=== PATIENT | female | born 1960 | race Caucasian/White ===

== ENCOUNTER → 2019-09-13 | Outpatient (CLI) | payer SELFPAY | PROVIDERS: Family Provider Family Medicine; Visit Provider Family Medicine | DX: R91.8 Other nonspecific abnormal finding of lung field (principal); Z90.49 Acquired absence of other specified parts of digestive tract | CPT/HCPCS: 71250 ==

== ENCOUNTER 2020-02-20 14:01 | Outpatient (CLI) | payer MEDICAID, SELFPAY ==
--- NOTE | 2020-02-20 14:14 | MM_ITS ---
WS: [id number] DIAGNOSTIC BILATERAL DIGITAL MAMMOGRAM WITH CAD HISTORY: HX OF BREAST CA COMPARISON: 06/27/2019 and 12/17/2018 TECHNIQUE: Bilateral craniocaudad, mediolateral oblique, and mediolateral views are submitted. Comput er aided detection utilized. Breast composition: The breasts are heterogeneously dense, which may obscure small masses. Postsurgic al changes and volume loss in the LEFT breast. Large dystrophic calcifications have developed at the surgical site in the upper outer quadrant. There is mild skin thickening and increase in the trabecul ar pattern from radiation treatment. Negative RIGHT breast. MM/[id number] IMPRESSION: BI-RADS: 2-Benign FOLLOW UP: 1 Year Follow-up
[2020-02-20 14:26] LABS: Basophils % 0.4 %; Eosinophils # 0.1 10^3/uL (0.0-0.8); Eosinophils % 1.4 %; Hematocrit 40.5 % (37.0-47.0); Hemoglobin 12.6 g/dL (11.5-15.3); Lymphocytes # 1.4 10^3/uL (0.8-4.8); Lymphocytes % 27.1 %; Mean Corpuscular HGB Conc 31.1 g/dL (30.0-36.0); Mean Corpuscular Hemoglobin 29.5 pg (28.0-34.0); Mean Corpuscular Volume 94.8 fL (81-99); Mean Platelet Volume 11.6 fL (7.4-10.4); Monocytes # 0.5 10^3/uL (0.2-0.9); Monocytes % 8.8 %; Neutrophils # 3.2 10^3/uL (1.8-7.7); Neutrophils % 62.3 %; Nucleated Red Blood Cells % 0 %; Platelet Count 187 10^3/cmm (130-400); Red Blood Count 4.27 10^6/uL (4.1-5.3); Red Cell Distribution Width 13.3 % (12.1-15.1); White Blood Count 5.1 10^3/uL (4.0-10.0)
[2020-02-20 14:41] LABS: Alanine Aminotransferase 17 U/L (0-33); Albumin Level 4.1 g/dL (3.5-5.2); Alkaline Phosphatase 116 IU/L (35-105); Anion Gap 14.5 (5-19); Aspartate Amino Transferase 16 U/L (0-32); Blood Urea Nitrogen 12 mg/dL (8-23); Calcium 10.1 mg/dL (8.5-10.5); Carbon Dioxide 27 mmol/L (22-29); Chloride 100 mmol/L (98-107); Globulin 3.1 g/dL (1.3-4.6); Glomerular Filtration Rate 101.6 mL/min (90-130); Glucose 87 mg/dL (65-115); Osmolality Calculated 281 mOsm/kg (285-295); Potassium 3.5 mmol/L (3.5-5.1); Sodium 138 mmol/L (136-145); Total Bilirubin 0.2 mg/dL (0.15-1.2); Total Protein 7.2 g/dL (6.6-8.7)
--- NOTE | 2020-02-24 15:41 | ONC FU_ITS ---
Dr. Harris Patient Follow-Up Note Patient: Vandana Salazar Unit #: [id number]: 1960 Dicatated By: Odin Harris M.D.Date of Visit:Feb 20, 2020 Onc Med Follow-up/Prog Note Chief Complaint: Breast cancer. History of Present Illness: This is a 58 year-old woman with grade 2 infiltrating ductal carcinoma of the left breast, stage IA (T1c, N0, M0), ER/OK negative and HER-2/david negative. She had presented with a lump in her left breast. Her treatment included excisional biopsy followed by reexcision lumpectomy and sentinel axillary lymph node biopsy. Pathology showed grade 2 infiltrating ductal carcinoma measuring 1.5 x 1.2 cm. The tumor was extending focally to the inked margin. The tumor was ER/OK negative, both less than 1%. It was negative for overexpression of HER-2/david by IHC and by FISH. The re-excision was negative for residual carcinoma, and there was no involvement in 3 sentinel axillary lymph nodes. She was given adjuvant chemotherapy with 4 cycles of Taxotere/cyclophosphamide, which she completed in March of 2011. She completed radiation to the left breast in July 2011 to a total dose of 6,040 cGy. She has since then been followed on observation/expectant management. During her subsequent followup she had developed some symptoms of peripheral neuropathy and she appeared to have some cognitive dysfunction. She also was found to have evidence of obstructive sleep apnea, for which she is on CPAP. Her laboratory studies have shown evidence of hypokalemia, for which she has remain on a potassium supplement. She has no other medical illnesses. She is a nonsmoker. She is seen for a scheduled visit. Her main complaint is that for the past month she has been having pain intermittently in her right lower chest/right upper quadrant area. It does not seem to be affected by eating. She says it feels a little better when she stretches. She had recently started taking omeprazole, but it really has not seemed to make any difference yet. She has been feeling a little sluggish. ECOG score is 1. She has good appetite. She has not had fever or night sweats. She has just occasional hot flashes. She occasionally gets short of breath with activity. She does not complain of cough. She has had a little bit of chest pain. She has no complaints with bowel or bladder function. She has pain in her legs. Recently she has been having headaches at least a couple of times a week. She occasionally has dizziness. She has had a little numbness/tingling in her left hand and some days she does not hold onto things very well. Medications: B-Complex 1 Tablet Oral daily, Calcium 1 (500 mg) Tablet Oral daily, Gabapentin 1 (600 mg) Capsule Oral t.i.d., Hydrocodone-Acetaminophen 1 (7.5-500 mg) Tablet Oral q 4 to 6 hours PRN, Klor-Con 10 1 (10 meq) Tablet, controlled release Oral daily, Multi-Vitamins 1 Tablet Oral daily, Omeprazole 1 Capsule (of 20 mg) Capsule Delayed Release Oral daily, Ranitidine HCl 2 (75 mg) Tablet Oral b.i.d., Venlafaxine HCl 75 mg - Take 1 Tablet SR 24 HR Oral daily Allergies: Naproxen Review of Systems: Constitutional - She has been feeling a little sluggish. Appetite is good and weight is stable. No fever or night sweats. She has occasional hot flashes. ECOG score is 1, ENMT - No sinus congestion/drainage. No mouth sores. No sore throat or difficulty swallowing, Hematologic/Lymphatic - No abnormal bruising or bleeding, Respiratory - She gets short of breath with exertional activity. No cough. No pleuritic pain or hemoptysis, Cardiovascular - She has had a little bit of chest pain. No palpitations, Gastrointestinal - No nausea or vomiting. She has occasional acid reflux. No diarrhea or constipation. No blood in the stool or black stools. She is having RUQ pain related to an ulcer her PCP is monitoring, Genitourinary (F) - No dysuria or hematuria. No urinary frequency. No urgency or incontinence, Musculoskeletal - She is having pain in her legs, Integumentary - No skin complicaitons, Neurologic - She is having headaches 2-3 times a week, this is new. No dizziness. She has tingling in her left hand. No other focal neurologic symptoms, Psychiatric - No anxiety or depression. No insomnia. Vital Signs: Performed on Feb 20, 2020 14:51 Height - 66.00 in Weight - 206.2 lbs (HIGH) BSA - 2.03 sq.m BMI - 33.28 (HIGH) Temperature - 98.4 F Pulse - 66 /min Respiration - 20 /min BP - 146/78 mm(hg) (HIGH) O2 Sat - 95 % (LOW) Pain - 4 Physical Examination: Constitutional - She looks good generally, Eyes - Sclerae nonicteric. Conjunctivae clear, ENMT - No lesions noted in the oral cavity, Hematologic/Lymphatic - No cervical or clavicular adenopathy, Respiratory - Lungs are clear with good air movement bilaterally, Cardiovascular - Heart rhythm is regular. There is no murmur, gallop, or rub noted, Breasts - The right breast shows no mass. There is induration of the lumpectomy site in the left breast. There is no mass palpable. There is no axillary adenopathy, Abdomen - Soft. There is tenderness along the lower anterior rib cage on the right. Liver is not tender or enlarged. Spleen is not palpable. There is no abdominal mass or ascites noted and there is no inguinal adenopathy, Extremities - No edema, Neurologic - No focal neurologic deficits noted. Lab/Imaging: Test performed on Feb 20, 2020 14:15 Sodium 138 mmol/L Potassium 3.5 mmol/L Chloride 100 mmol/L CO2 27 mmol/L Anion Gap 14.5 BUN 12 mg/dL Creatinine 0.6 mg/dL Cr Clearance (Est) 145.39 mL/min eGFR 101.6 mL/min Glucose 87 mg/dL Calcium 10.1 mg/dL Protein, Total 7.2 g/dL Albumin 4.1 g/dL Globulin 3.1 g/dL Bilirubin, Total 0.2 mg/dL ALT (SGPT) 17 U/L AST (SGOT) 16 U/L Alkaline Phosphatase 116 IU/L WBC 5.1 10 3/uL RBC 4.27 10 6/uL HGB 12.6 g/dL HCT 40.5 % MCV 94.8 fL MCH 29.5 pg MCHC 31.1 g/dL RDW 13.3 % Platelet Count 187 10 3/cmm MPV 11.6 fL Neutrophils 3.2 10 3/uL Lymphocytes 1.4 10 3/uL Monocytes 0.5 10 3/uL Eosinophils 0.1 10 3/uL Basophils 0.0 10 3/uL Neutrophil % 62.3 % Lymphocyte % 27.1 % Monocyte % 8.8 % Eosinophil % 1.4 % Basophils % 0.4 % NRBC 0.0 /100WBC NRBC % 0 % Impression: 1. Patient with grade 2 infiltrating ductal carcinoma of the left breast, stage IA, ER/OK negative and HER-2/david negative. 2. Her treatment included lumpectomy/sentinel axillary lymph node biopsy followed by adjuvant chemotherapy with 4 cycles of Taxotere/cyclophosphamide. 3. She completed radiation to the left breast in July 2011, total dose 6040 cGy. 4. She has some ongoing problems with peripheral neuropathy and musculoskeletal pain following the chemotherapy, and she also has had some cognitive dysfunction. 5. She has started CPAP for obstructive sleep apnea. 6. During follow-up her laboratory studies have shown evidence of hypokalemia. She has had persistent neuropathy symptoms following her chemotherapy, and she has had an ongoing requirement for pain medication. Recently she is developed some new pain in the right lower chest/upper abdomen. She has some associated tenderness in the right lower rib cage, and I think it is likely that it is musculoskeletal in origin. She otherwise appears stable clinically. Thus far there has been no evidence of recurrence of the breast cancer. Plan: She remains on observation/expectant management for the breast cancer. If her pain continues, I will schedule her for a bone scan. Otherwise I will just plan to see her for a follow-up visit in one year. Signed By: Odin Harris M.D. <<Signature on File>>
== END 2020-02-20 14:02 | disposition home or self-care (01) ==
LOC: ONCMED 14:07
PROVIDERS: PCP Family Medicine; Visit Provider Internal Medicine Medical Oncology
DX: Z08 Encounter for follow-up examination after completed treatment for malignant neoplasm (principal); Z85.3 Personal history of malignant neoplasm of breast; G62.9 Polyneuropathy, unspecified; G47.33 Obstructive sleep apnea (adult) (pediatric); Z90.12 Acquired absence of left breast and nipple; Z92.21 Personal history of antineoplastic chemotherapy
CPT/HCPCS: 77066; 80053; 85025; 99214

== ENCOUNTER 2020-07-11 10:28 | Outpatient (CLI) | payer MEDICAID, SELFPAY ==
--- NOTE | 2020-07-11 10:32 | MR_ITS ---
WS: [id number] MRI RIGHT SHOULDER HISTORY: RIGHT SHOULDER PAIN COMPARISON: None available. TECHNIQUE: Multiplanar sequences of the shoulder joint are submitted. Marked hypertrophy involving the distal clavicle and acromion. Osteophyte formation from the AC joint extends towards the supraspinatus muscle with contact. There is increase fluid through the AC ligame nt. There is marrow edema and subchondral fluid. Moderate subacromial and subdeltoid bursal distentio n. There is an additional osteophyte from the distal undersurface of the acromion with mild encroachm ent upon the supraspinatus. No os acromion. Biceps tendon remains in normal position. Partial insertion site tear of the subscapularis tendon. There is adjacent marrow edema and fluid. West praspinatus tendon has mild tendinopathy. Infraspinatus tendon is normal. There is a small amount of marrow edema in the anterior humeral head. Marrow edema is associated with the biceps tendon and the subscapularis tendon. Increased signal at the rotator cuff interval. No labral tear is identified. MR/MR shoulder RT wo con* [id number] IMPRESSION: 1. Mild AC joint joint sprain. 2. Moderate AC joint osteoarthritis. Osteophytes encroach upon the supraspinat us muscle. 3. Moderate subacromial and subdeltoid bursal distention. 4. Insertion site tear of the subscapularis tendon with adjacent tendinopathy and edema in the rotator cuff interval. 5. Marrow edema in the humeral head associated with subscapularis tendon inser tion site and the rotator cuff interval. 6. Biceps tendon appears to be in normal position in the bicipital groove.
== END 2020-07-11 10:29 | disposition home or self-care (01) ==
LOC: RADSHAW 10:31
PROVIDERS: PCP Family Medicine; Visit Provider Family Medicine
DX: M25.511 Pain in right shoulder (principal); S43.51XA Sprain of right acromioclavicular joint, initial encounter; X58.XXXA Exposure to other specified factors, initial encounter; M19.011 Primary osteoarthritis, right shoulder; M25.711 Osteophyte, right shoulder; R60.0 Localized edema
CPT/HCPCS: 73221

== ENCOUNTER 2020-08-30 10:00 | Outpatient (CLI) | payer MEDICAID, SELFPAY ==
--- NOTE | 2020-08-30 10:13 | CT_ITS ---
WS: [id number] CT scan of the chest without IV contrast, additional two-dimensional coronal and sagittal reconstruct ion was performed. 08/30/2020 Clinical Data: PULMONARY NODULE, RIGHT UPPER Lobe, malignant NEOPLASM OF LUCIEN Comparison: CT chest, 09/13/2019. DLP: 994.[address] scans at [facility] use at least one of these dose optimization techniques: automat ed exposure control; mA and/or kV adjustment per patient size (includes targeted exams where dose is matched to clinical indication); or iterative reconstruction. Findings: There are 2 small nodules in the right upper lobe, one measuring 0.3 cm seen best on image 18 of 60 o n axial views and the other is 0.2 cm seen best on axial image 20 of 60. Neither one has changed. No masses or effusions are seen. No pneumonia or pneumothorax is seen. No large metastatic lesions ar e present. The trachea bifurcates normally into the bronchi. The heart size is normal with no pericar dial effusion. The pulmonary arterial system and thoracic aorta demonstrate no abnormalities or dilat ations. There is no axillary or significant mediastinal adenopathy. There are calcifications in the l eft breast from tumor treatment. The upper abdomen demonstrates clips in the gallbladder fossa from a cholecystectomy. The bones of th e thorax demonstrate no metastatic lesions. Osteoarthritis of the thoracic vertebral bodies is noted. CT/CT chest wo con [id number] Impression: 1. 2 small nodules unchanged in the right upper lobe and recommend no further i maging. 2. Negative for acute cardiopulmonary disease.
== END 2020-08-30 10:01 | disposition home or self-care (01) ==
LOC: RADWPI 10:05
PROVIDERS: PCP Family Medicine; Visit Provider Internal Medicine Medical Oncology
DX: R91.8 Other nonspecific abnormal finding of lung field (principal)
CPT/HCPCS: 71250

== ENCOUNTER 2021-02-20 10:09 | Outpatient (CLI) | payer MEDICAID, SELFPAY ==
--- NOTE | 2021-02-20 10:16 | MM_ITS ---
WS: [id number] Bilateral diagnostic digital mammogram, 02/20/2021 Clinical Data: HX OF BREAST CA Comparison: 02/20/2020 06/27/2019 12/17/2018 12/14/2017, 06/12/2017, 12/12/2016, 12/10/2015, 12/06/2014, 014, , 09/11/2011. Findings: The breasts show heterogeneous density. There are amorphous benign calcifications in the upper outer quadrant of the left breast with volume loss of the left breast from treatment. There is minimal skin thickening of the left breast. The right breast shows no abnormalities. MM/[place] [id number] Impression: 1. Posttreatment changes left breast, but no malignant changes are seen. 2. Negative right breast. 3. Recommend annual mammograms. BIRADS: 2-Benign FOLLOW UP: 1 Year Follow-up The CAD construction checker was used.
[2021-02-20 11:05] LABS: Basophils % 0.4 %; Eosinophils # 0.1 10^3/uL (0.0-0.8); Eosinophils % 1.4 %; Hematocrit 39.1 % (37.0-47.0); Hemoglobin 12.9 g/dL (11.5-15.3); Lymphocytes # 1.4 10^3/uL (0.8-4.8); Lymphocytes % 24.4 %; Mean Corpuscular Hemoglobin 29.9 pg (28.0-34.0); Mean Corpuscular Volume 90.7 fL (81-99); Mean Platelet Volume 12.2 fL (7.4-10.4); Monocytes # 0.6 10^3/uL (0.2-0.9); Monocytes % 10.7 %; Neutrophils # 3.59 10^3/uL (1.8-7.7); Neutrophils % 62.9 %; Nucleated Red Blood Cells % 0 %; Platelet Count 198 10^3/cmm (130-400); Red Blood Count 4.31 10^6/uL (4.1-5.3); Red Cell Distribution Width 13.7 % (12.1-15.1); White Blood Count 5.7 10^3/uL (4.0-10.0)
[2021-02-20 11:41] LABS: Alanine Aminotransferase 19 U/L (0-33); Alkaline Phosphatase 118 IU/L (35-105); Anion Gap 13.9 (5-19); Aspartate Amino Transferase 17 U/L (0-32); Blood Urea Nitrogen 17 mg/dL (8-23); Calcium 8.8 mg/dL (8.5-10.5); Carbon Dioxide 24 mmol/L (22-29); Chloride 103 mmol/L (98-107); Glucose 88 mg/dL (65-115); Osmolality Calculated 285 mOsm/kg (285-295); Potassium 3.9 mmol/L (3.5-5.1); Sodium 137 mmol/L (136-145); Total Bilirubin 0.2 mg/dL (0.15-1.2)
--- NOTE | 2021-02-22 17:03 | ONC FU_ITS ---
Dr. Harris Patient Follow-Up Note Patient: Vandana Salazar Unit #: [id number]: 1960 Dicatated By: Odin Harris M.D.Date of Visit:Feb 20, 2021 Onc Med Follow-up/Prog Note Chief Complaint: Breast cancer. History of Present Illness: This is a 60 year-old woman with grade 2 infiltrating ductal carcinoma of the left breast, stage IA (T1c, N0, M0), ER/GA negative and HER-2/david negative. She had presented with a lump in her left breast. Her treatment included excisional biopsy followed by reexcision lumpectomy and axillary sentine lymph node biopsy. Pathology showed grade 2 infiltrating ductal carcinoma measuring 1.5 x 1.2 cm. The tumor was extending focally to the inked margin. The tumor was ER/GA negative, both less than 1%. It was negative for overexpression of HER-2/david by IHC and by FISH. The re-excision was negative for residual carcinoma, and there was no involvement in 3 sentinel lymph nodes. She was given adjuvant chemotherapy with 4 cycles of Taxotere/cyclophosphamide, which she completed in March of 2011. She completed radiation to the left breast in July 2011 to a total dose of 6,040 cGy. She was then followed on observation/expectant management. During her subsequent followup she had developed some symptoms of peripheral neuropathy and she appeared to have some cognitive dysfunction. She also was found to have evidence of obstructive sleep apnea, for which she is on CPAP. Her laboratory studies had shown evidence of hypokalemia, and she has continued on a potassium supplement. She has no other medical illnesses. She is a nonsmoker. She is seen for a scheduled visit. She has been feeling pretty good generally. She says she does get tired. She has been trying to walk more and she has been trying to lose weight. Her ECOG score is 1. She has good appetite. She has no fever, night sweats, or hot flashes. She says her head tends to be stopped up in the morning and she has some associated cough. She is sometimes short of breath. She does not complain of chest pain. She has had ongoing problems with acid reflux and she is now taking omeprazole twice daily. She also still has bouts of diarrhea and she continues to have a sore spot in her right upper quadrant area. She has no complaints. She has pain in her knees, legs, and ankles. She has headache once or twice a week. She sometimes has a little bit of dizziness. She has numbness on the dorsum of her left foot. She occasionally has some anxiety. She is on CPAP for the obstructive sleep apnea. Medications: B-Complex 1 Tablet Oral daily, Calcium 1 (500 mg) Tablet Oral daily, Gabapentin 1 (600 mg) Capsule Oral t.i.d., Hydrocodone-Acetaminophen 1 (7.5-500 mg) Tablet Oral q 4 to 6 hours PRN, Klor-Con 10 1 (10 meq) Tablet, controlled release Oral daily, Multi-Vitamins 1 Tablet Oral daily, Omeprazole 1 Capsule (of 40 mg) Capsule Delayed Release Oral b.i.d., Venlafaxine HCl 75 mg - Take 1 Tablet SR 24 HR Oral daily Allergies: Naproxen Vital Signs: Performed on Feb 20, 2021 11:40 Height - 66.00 in Weight - 208.4 lbs (HIGH) BSA - 2.04 sq.m BMI - 33.64 (HIGH) Temperature - 97.8 F (LOW) Pulse - 73 /min Respiration - 17 /min BP - 132/85 mm(hg) O2 Sat - 94 % (LOW) Pain - 3 Physical Examination: Constitutional - She looks good generally, Eyes - Sclerae nonicteric. Conjunctivae clear, ENMT - No lesions noted in the oral cavity, Hematologic/Lymphatic - No cervical or clavicular adenopathy, Respiratory - Lungs are clear with good air movement bilaterally, Cardiovascular - Heart rhythm is regular. There is no murmur, gallop, or rub noted, Breasts - The right breast shows no mass. There is mild induration in the left breast. There is no mass palpable. There is no axillary adenopathy, Abdomen - Soft. There is a little tenderness along the lower anterior rib cage on the right. Liver is not tender or enlarged. Spleen is not palpable. There is no abdominal mass or ascites noted and there is no inguinal adenopathy, Extremities - No edema. Pedal pulses are palpable bilaterally, Neurologic - No focal neurologic deficits noted. Lab/Imaging: Test performed on Feb 20, 2021 10:30 Sodium 137 mmol/L Potassium 3.9 mmol/L Chloride 103 mmol/L CO2 24 mmol/L Anion Gap 13.9 BUN 17 mg/dL Creatinine 0.5 mg/dL Cr Clearance (Est) 174.09 mL/min eGFR 125.0 mL/min Glucose 88 mg/dL Osmolality - Calculated 285 mOsm/kg Calcium 8.8 mg/dL Protein, Total 7.0 g/dL Albumin 4.0 g/dL Globulin 3.0 g/dL Bilirubin, Total 0.2 mg/dL ALT (SGPT) 19 U/L AST (SGOT) 17 U/L Alkaline Phosphatase 118 IU/L WBC 5.7 10 3/uL RBC 4.31 10 6/uL HGB 12.9 g/dL HCT 39.1 % MCV 90.7 fL MCH 29.9 pg MCHC 33.0 g/dL RDW 13.7 % Platelet Count 198 10 3/cmm MPV 12.2 fL Neutrophils 3.59 10 3/uL Lymphocytes 1.4 10 3/uL Monocytes 0.6 10 3/uL Eosinophils 0.1 10 3/uL Basophils 0.0 10 3/uL Neutrophil % 62.9 % Lymphocyte % 24.4 % Monocyte % 10.7 % Eosinophil % 1.4 % Basophils % 0.4 % NRBC % 0 % Problem List: 1. Grade 2 infiltrating ductal carcinoma of the left breast, stage IA, ER/GA negative and HER-2/david negative. 2. Ostructive sleep apnea. 3. Hypokalemia. Problems Addressed with this Encounter and Plan: Patient with grade 2 infiltrating ductal carcinoma of the left breast, stage IA, ER/GA negative and HER-2/david negative. Her treatment included lumpectomy/axillary sentinel lymph node biopsy followed by adjuvant chemotherapy with 4 cycles of Taxotere/cyclophosphamide. She completed radiation to the left breast in July 2011, total dose 6040 cGy. She was then followed expectantly. She had some ongoing problems with peripheral neuropathy and musculoskeletal pain following the chemotherapy, and she also had some cognitive dysfunction. She has had an ongoing requirement for pain medication. Overall, though, she has been doing well clinically. She is now close to 10 years out from completion of her treatment, thus far with no evidence of recurrence of the breast cancer. She remains on observation/expectant management. She will continue her regular follow-up now with Dr. Nevilel. She should continue her yearly screening with bilateral diagnostic mammogram. I will plan to see her again only as needed. Signed By: Odin Harris M.D. <<Signature on File>>
== END 2021-02-20 10:10 | disposition home or self-care (01) ==
LOC: ONCMED 10:12
PROVIDERS: PCP Family Medicine; Visit Provider Internal Medicine Medical Oncology
DX: Z08 Encounter for follow-up examination after completed treatment for malignant neoplasm (principal); Z85.3 Personal history of malignant neoplasm of breast; Z92.3 Personal history of irradiation; Z92.21 Personal history of antineoplastic chemotherapy; G47.33 Obstructive sleep apnea (adult) (pediatric); E87.6 Hypokalemia; G62.0 Drug-induced polyneuropathy; T45.1X5A Adverse effect of antineoplastic and immunosuppressive drugs, initial encounter; Z79.899 Other long term (current) drug therapy
CPT/HCPCS: 36415; 77066; 80053; 85025; G0463

== ENCOUNTER 2021-08-05 08:01 | Outpatient (CLI) | payer MEDICAID, SELFPAY ==
--- NOTE | 2021-08-05 | CT_ITS ---
WS: [id number] CT CHEST TECHNIQUE: Contrast enhanced CT of the chest with coronal and sagittal reformatted images. CLINICAL INFORMATION: LUNG NODULE F/U COMPARISON: CT chest 08/30/2020 and 09/13/2019 DLP: 875.[address] scans at [facility] use at least one of these dose optimization techniques: automated e xposure control; mA and/or kV adjustment per patient size (includes targeted exams where dose is matc hed to clinical indication); or iterative reconstruction. FINDINGS: 2 tiny nodules in right upper lobe are unchanged since September 13, 2019. No other suspicious pulmona ry parenchymal abnormalities. Slight bibasilar atelectasis. No acute pulmonary infiltrates. No focal pneumonia or pleural fluid. Normal thyroid gland. Normal caliber thoracic aorta. Aortic calcification. No axillary lymphadenopath y. No mediastinal or hilar lymphadenopathy. Adrenal glands are normal. Cholecystectomy clips. Diffuse fa tty infiltration of the liver. Normal GE junction. CT/CT chest w con* [id number] IMPRESSION: 1. 2 tiny pulmonary nodules right upper lobe are unchanged since 2018. 2. No other significant changes from previous. 3. No acute pulmonary infiltrates. No focal pneumonia or pleural fluid.
[2021-08-05] MEDS: iodixanol 320 mg/mL 100mL Btl IV (10:54)
== END 2021-08-05 08:02 | disposition home or self-care (01) ==
PROVIDERS: PCP Family Medicine; Visit Provider Family Medicine
DX: R91.1 Solitary pulmonary nodule (principal)
CPT/HCPCS: 71260; Q9967

== ENCOUNTER 2022-04-07 14:21 | Outpatient (CLI) | payer MEDICAID, SELFPAY ==
--- NOTE | 2022-04-07 14:56 | MM_ITS ---
WS: [id number] BILATERAL 3D TOMOSYNTHESIS DIGITAL DIAGNOSTIC MAMMOGRAPHY WITH CAD CLINICAL INFORMATION: HX OF BREAST CA HISTORY: LEFT breast soreness COMPARISON: February 20, 2021 TECHNIQUE: Bilateral CC, MLO, and ML views. FINDINGS: Scattered fibroglandular densities bilaterally. Heterogeneous dystrophic calcifications upper outer L EFT breast are unchanged. Vascular calcifications. Additional punctate and lucent centered calcificat ions. No suspicious focal mass, asymmetry, calcifications, or architectural distortion. No evidence of angle gnancy. MM/[place] [id number] IMPRESSION: BI-RADS: 2-Benign FOLLOW UP: 1 Year Follow-up Recommend return to annual diagnostic mammography.
== END 2022-04-07 14:22 | disposition home or self-care (01) ==
LOC: RAD 14:22
PROVIDERS: PCP Family Medicine; Visit Provider Family Medicine
DX: Z85.3 Personal history of malignant neoplasm of breast (principal)
CPT/HCPCS: 77062

== ENCOUNTER → 2022-10-01 13:37 | Outpatient (BNVA) | payer MEDICAID, SELFPAY | PROVIDERS: PCP Family Medicine; Referring Provider Family Medicine; Visit Provider Podiatrist Foot & Ankle Surgery | DX: Q82.8 Other specified congenital malformations of skin (principal); L84 Corns and callosities; M89.8X7 Other specified disorders of bone, ankle and foot | CPT/HCPCS: 17110; 99204 ==

== ENCOUNTER 2022-10-14 10:52 | Emergency (ER) | payer MEDICAID, SELFPAY ==
[2022-10-14 10:58] VITALS: BP 151/57; PULSE 79; RESP 18; TEMP 36.4; O2SAT 94; BMI 31.6
--- NOTE | 2022-10-14 11:01 | ED_ITS ---
HPI - Fall General: Stated Complaint: Left arm in pain Time Seen by Provider: 10/14/22 10:57 PFSH ED PFSH: Medical History Neuropathy Social History Smoking and tobacco status: never smoked Alcohol intake: never Discharge Plan Discharge Condition: Stable Prescriptions: No Action vitamin B complex [Super B-50 Complex] Capsule 1 cap PO DAILY venlafaxine 75 mg tablet 75 mg PO DAILY hydrocodone-acetaminophen [Spencer] 7.5-325 mg tablet 1 tab PO Q6H PRN gabapentin 100 mg capsule 200 mg PO TID potassium chloride 10 mEq capsule, extended release 10 meq PO BID omeprazole 20 mg capsule,delayed release(DR/EC) 20 mg PO DAILY Referrals: Zach Neville MD [Primary Care Provider] - Coding Level of Care Code ED Dinkey Operator for Richard Downing
--- NOTE | 2022-10-14 11:07 | XR_ITS ---
WS: [id number] LEFT ELBOW: 3 VIEW(S) TECHNIQUE: AP, oblique and lateral. HISTORY: fall, arm pain COMPARISON: None available. Suspicious for radial neck fracture. There is no definite fracture but there is very slight trabecula r compression. Moderate-sized joint effusion. There is elevation of the anterior fat pad. No soft tissue abnormality. XR/XR elbow LT min 3V* [id number] IMPRESSION: 1. Moderate joint effusion at the elbow. 2. Suspect but cannot confirm radial neck fracture.
--- NOTE | 2022-10-14 11:07 | XR_ITS ---
WS: [id number] LEFT WRIST: 3 VIEW(S) TECHNIQUE: PA, oblique and lateral. HISTORY: fall, arm pain COMPARISON: None available. No acute fracture or dislocation. Moderate first carpometacarpal joint space arthritis. No soft tissue swelling. XR/XR wrist LT min 3V* [id number] IMPRESSION: No LEFT wrist fracture.
--- NOTE | 2022-10-14 11:07 | XR_ITS ---
WS: [id number] LEFT HUMERUS: 2 VIEW(S) TECHNIQUE: AP and lateral. HISTORY: fall. arm pain COMPARISON: None available. No acute fracture or dislocation. No joint or soft tissue abnormality. No foreign bodies and visualized upper thorax is unremarkable. XR/[place] [id number] IMPRESSION: Normal LEFT humerus.
--- NOTE | 2022-10-14 11:08 | W.ED.UPPEXIN ---
HPI - Extremity Injury (Upper) General: Chief Complaint: Extremity Injury, Upper Stated Complaint: Left arm in pain Time Seen by Provider: 10/14/22 10:57 Source: patient Mode of arrival: ambulatory Limitations: no limitations History of Present Illness: Patient is a nice 62-year-old female presents to ED today for evaluation of a left arm injury that she sustained yesterday after slipping and falling on the ice. Patient states she fell onto her hip and buttock as well as her left outstretched arm. She is not having any hip or buttock pain and has been ambulatory since the fall without assistance without difficulty. She denies striking her head or LOC. Patient has not noticed any swelling or discoloration to the arm. She has not noticed any numbness, tingling, loss of sensation. MD complaint: injury to: left, arm, elbow and forearm Onset (ago): day(s) (yesterday) Other injuries: none Place: home Relieving factors: immobilization Exacerbating factors: movement of extremity Context: fall (slip and fall on ice) Associated symptoms: Reports no associated symptoms; Denies neck pain or weakness in extremities Review of Systems Musc: Reports: extremity pain (L arm); Denies: neck pain, back pain, extremity swelling or joint swelling Neuro: Denies: headache(s), numbness in extremities, weakness in extremities or sensory changes FOR[facility], [facility] ED PFSH: Medical History Neuropathy Social History Smoking and tobacco status: never smoked Alcohol intake: never Physical Exam Const: COMMON NORMALS: no acute distress, average body habitus, patient oriented x3, no limitations, alert and well nourished GENERAL APPEARANCE: cooperative ORIENTATION/CONSCIOUSNESS: Yes awake, Yes oriented to person, Yes oriented to place and Yes oriented to time HENMT: COMMON NORMALS: normocephalic and atraumatic HEAD & SCALP: normal to inspection, normocephalic and atraumatic Neck/C-Spine: COMMON NORMALS: full ROM CERVICAL SPINE: No Cervical spine tenderness Back/Pelvis: COMMON NORMALS: thoracic and lumbar spine normal to inspection and no thoracic nor lumbar tenderness Extremity: COMMON NORMALS: normal to inspection, capillary refill normal, no joint enlargement and no clubbing, cyanosis or edema GENERAL: Yes normal exam except as noted LEFT UPPER EXTREMITY: Yes upper arm, Yes elbow joint and Yes lower arm OTHER: pt with tenderness extending from about mid humerus down to mid forearm; she cannot seem to localize maximum area of tenderness; she has full (although slightly hesitant) ROM of her elbow; no swelling noted to extremity; no coolness, pallor, heat/warmth; radial pulse, cap refill, and sensation are all normal Neuro: JACQUI COMA SCALE: document GCS findings [place] coma scale eye opening: Spontaneous [place] coma scale verbal response: Orientated Jacqui coma scale motor response: Obey commands Jacqui coma scale total score: 15 COMMON NORMALS: patient oriented x3, moves all extremities, no focal motor deficits, no sensory deficits noted and gait normal SENSORIUM/ORIENTATION: Yes alert, Yes oriented to person, Yes oriented to place and Yes oriented to time Skin: TRAUMA: no lacerations or abrasions Course Vital Signs: Vital signs: Vital Signs Temperature 97.6 F 10/14/22 10:58 Pulse Rate 79 10/14/22 10:58 Respiratory Rate 18 10/14/22 10:58 Blood Pressure 151/57 10/14/22 10:58 Pulse Oximetry 94 10/14/22 10:58 Oxygen Delivery Me thod 10/14/22 10:58 MDM - Extremity Injury (Upper) Medical Decision Making Questionable L radial head fracture. Will sling and have patient follow up with orthopedics. Lab Data Radiology Impressions Elbow X-Ray 10/14/22 11:07 IMPRESSION: 1. Moderate joint effusion at the elbow. 2. Suspect but cannot confirm radial neck fracture. Humerus X-Ray 10/14/22 11:07 IMPRESSION: Normal LEFT humerus. Wrist X-Ray 10/14/22 11:07 IMPRESSION: No LEFT wrist fracture. Discharge Plan Discharge Patient Disposition: Home Clinical Impression: Closed fracture of head of left radius Qualifiers: Encounter type: initial encounter Fracture alignment: nondisplaced Qualified Code(s): S52.125A - Nondisplaced fracture of head of left radius, initial encounter for closed fracture Condition: Stable Prescriptions: No Action vitamin B complex [Super B-50 Complex] Capsule 1 cap PO DAILY venlafaxine 75 mg tablet 75 mg PO DAILY hydrocodone-acetaminophen [Burchard] 7.5-325 mg tablet 1 tab PO Q6H PRN gabapentin 100 mg capsule 200 mg PO TID potassium chloride 10 mEq capsule, extended release 10 meq PO BID omeprazole 20 mg capsule,delayed release(DR/EC) 20 mg PO DAILY Discharge Orders: Discharge ED (Routine); Ordered 10/14/22 Ordered By: Abimbola Mike Referrals: Zach Neville MD [Primary Care Provider] - Patient Instructions: Elbow Fracture (DC) Coding Level of Care Code ED Director Telecommunications for Chg Fwd Exam Detailed
--- NOTE | 2022-10-14 11:13 | PC.NURSE ---
report given to Rodrigo to assume care
[2022-10-14 11:31] VITALS: BP 131/75; O2SAT 94
[2022-10-14 11:59] VITALS: BP 135/70; PULSE 76; O2SAT 92
--- NOTE | 2022-10-14 13:10 | DCPLANNER ---
Addendum entered by Nancy Trinh 11/25/22 17:56: Patient had follow up appointment with ortho - patient did attend appointment. Addendum entered by Nancy Trinh 10/15/22 14:34: Patient has a follow up appointment scheduled for , October 16, 2022 at 9:[address] Alvarado at ortho. Clinic will call patient with appointment information. Original Note: statement clerks manager had message to schedule a follow up appointment for patient with ortho. statement clerks manager sent patients information to the front office staff at ortho. Patients information will be printed and reviewed. Clinic will call patient with appointment information.
== END 2022-10-14 11:55 | disposition home or self-care (01) ==
PROVIDERS: Emergency Provider Physician Assistant; PCP Family Medicine
DX: S52.125A Nondisplaced fracture of head of left radius, initial encounter for closed fracture (principal); W00.0XXA Fall on same level due to ice and snow, initial encounter
CPT/HCPCS: 73060; 73080; 73110; 99283

== ENCOUNTER → 2022-10-16 09:29 | Outpatient (BNVA) | payer MEDICAID, SELFPAY | PROVIDERS: PCP Family Medicine; Referring Provider Physician Assistant; Visit Provider Student in an Organized Health Care Education/Training Program | DX: S52.125A Nondisplaced fracture of head of left radius, initial encounter for closed fracture (principal); W00.0XXA Fall on same level due to ice and snow, initial encounter | CPT/HCPCS: 99203 ==

== ENCOUNTER → 2022-10-21 13:21 | Outpatient (BNVA) | payer MEDICAID, SELFPAY | PROVIDERS: PCP Family Medicine; Visit Provider Podiatrist Foot & Ankle Surgery | DX: Q82.8 Other specified congenital malformations of skin (principal); L84 Corns and callosities; M89.8X7 Other specified disorders of bone, ankle and foot | CPT/HCPCS: 73630; 99213 ==

== ENCOUNTER → 2022-11-14 09:13 | Outpatient (BNVA) | payer MEDICAID, SELFPAY | PROVIDERS: PCP Family Medicine; Visit Provider Student in an Organized Health Care Education/Training Program | DX: S52.122A Displaced fracture of head of left radius, initial encounter for closed fracture (principal); X58.XXXA Exposure to other specified factors, initial encounter | CPT/HCPCS: 73080; 99213 ==

== ENCOUNTER → 2022-12-15 08:36 | Outpatient (BNVA) | payer MEDICAID, SELFPAY | PROVIDERS: PCP Family Medicine; Visit Provider Student in an Organized Health Care Education/Training Program | DX: S52.132D Displaced fracture of neck of left radius, subsequent encounter for closed fracture with routine healing (principal); X58.XXXD Exposure to other specified factors, subsequent encounter | CPT/HCPCS: 73080; 99213 ==

== ENCOUNTER → 2023-02-16 08:18 | Outpatient (BNVA) | payer MEDICAID, SELFPAY | PROVIDERS: PCP Family Medicine; Visit Provider Student in an Organized Health Care Education/Training Program | DX: S52.132A Displaced fracture of neck of left radius, initial encounter for closed fracture (principal); X58.XXXA Exposure to other specified factors, initial encounter | CPT/HCPCS: 73080; 99213 ==

== ENCOUNTER 2023-08-27 11:53 | Outpatient (CLI) | payer MEDICARE, MEDICAID, SELFPAY ==
--- NOTE | 2023-08-27 11:59 | MM_ITS ---
WS: [id number] BILATERAL 3D TOMOSYNTHESIS DIGITAL DIAGNOSTIC MAMMOGRAPHY WITH CAD CLINICAL INFORMATION: ANNUAL - HX BR CA HISTORY: COMPARISON: 04/07/2022 TECHNIQUE: Bilateral CC, MLO, and ML views. FINDINGS: The breasts are composed of heterogeneous fibroglandular density, which can limit the detection of sm all underlying mass lesions. Vascular calcification. Punctate and lucent centered calcifications. Dys trophic calcifications LEFT breast at the lumpectomy site. Associated parenchymal fibrosis. No suspicious focal mass, asymmetry, calcifications, or architectural distortion. No evidence of angle gnancy. IMPRESSION: MM/[place] [id number] BI-RADS: 2-Benign FOLLOW UP: 1 Year Follow-up Recommend return to annual diagnostic mammography.
== END 2023-08-27 11:54 | disposition home or self-care (01) ==
LOC: RAD 11:54
PROVIDERS: PCP Family Medicine; Visit Provider Family Medicine
DX: Z85.3 Personal history of malignant neoplasm of breast (principal); Z12.31 Encounter for screening mammogram for malignant neoplasm of breast
CPT/HCPCS: 77062; G0279

== ENCOUNTER 2024-02-22 13:00 | Outpatient (CLI) | payer MEDICARE, MEDICAID, SELFPAY | END 2024-02-22 13:01 | disposition home or self-care (01) | LOC: SLEEP 02-23 11:01 | PROVIDERS: PCP Family Medicine; Visit Provider Family Medicine | DX: G47.33 Obstructive sleep apnea (adult) (pediatric) (principal); G47.36 Sleep related hypoventilation in conditions classified elsewhere | CPT/HCPCS: G0399 ==

== ENCOUNTER → 2024-07-25 15:39 | Outpatient (BNVA) | payer MEDICARE, MEDICAID, SELFPAY | PROVIDERS: PCP Family Medicine; Visit Provider Podiatrist Foot & Ankle Surgery | DX: M79.671 Pain in right foot (principal); M77.9 Enthesopathy, unspecified | CPT/HCPCS: 73630; 99213 ==

== ENCOUNTER → 2024-08-16 09:15 | Outpatient (BNVA) | payer MEDICARE, MEDICAID, SELFPAY | PROVIDERS: PCP Family Medicine; Visit Provider Podiatrist Foot & Ankle Surgery | DX: M77.9 Enthesopathy, unspecified (principal) | CPT/HCPCS: 99213 ==

== ENCOUNTER 2025-01-31 08:03 | Outpatient (CLI) | payer MEDICARE, MEDICAID, SELFPAY ==
--- NOTE | 2025-01-31 | MM_ITS ---
WS: [id number] DIAGNOSTIC BILATERAL DIGITAL BREAST TOMOSYNTHESIS MAMMOGRAPHY WITH CAD HISTORY: Annual mammography. COMPARISON: 08/27/2023, 04/07/2022 TECHNIQUE: Bilateral craniocaudad, mediolateral oblique, and mediolateral views are submitted with tomosynthesis and SM. Computer aided detection utilized. Breast composition: The breasts are heterogeneously dense, which may obscure small masses. Very dense branching dystrophic calcification upper outer quadrant of the LEFT breast at the lumpectomy site. Additional benign coarse calcifications predominantly within the anterior LEFT breast are stable. No area of distortion or suspicious grouping of calcifications. MM/MM diag BI tomosynthesis [id number] IMPRESSION: BI-RADS: 2 - Benign FOLLOW UP: 1 Year Follow-up
== END 2025-01-31 08:04 | disposition home or self-care (01) ==
PROVIDERS: PCP Family Medicine; Visit Provider Family Medicine
DX: Z85.3 Personal history of malignant neoplasm of breast (principal); R92.333 Mammographic heterogeneous density, bilateral breasts; R92.1 Mammographic calcification found on diagnostic imaging of breast
CPT/HCPCS: 77062; G0279